=== PATIENT | male | born 1965 | race Caucasian/White ===

== ENCOUNTER 2017-04-15 14:26 | Emergency (ER) | payer BC ==
[2017-04-15] MEDS: IBUPROFEN 800 MG TAB PO (16:50)
== END 2017-04-15 18:55 | disposition home or self-care (01) ==
LOC: FTE 14:26
DX: R07.81 Pleurodynia (principal); M25.562 Pain in left knee; I10 Essential (primary) hypertension
CPT/HCPCS: 71045; 72040; 72100; 73562; 99283-25

== ENCOUNTER 2017-09-12 16:17 | Emergency (ER) | payer BC | END 2017-09-12 18:01 | disposition home or self-care (01) | LOC: FTE 16:17 | DX: J40 Bronchitis, not specified as acute or chronic (principal); I10 Essential (primary) hypertension | CPT/HCPCS: 99284 ==